=== PATIENT | male | born 1950 ===

== ENCOUNTER 2018-08-12 09:04 | Day surgery (SDC) | payer MEDICARE ==
[2017-05-10 14:00] VITALS: BMI 23.3
[2018-08-12 10:11] VITALS: O2SAT 100
[2018-08-12] MEDS ORDERED: Propofol 10 mg/ml Inj (20 ML) ONE ×2 (11:50→12:14)
[2018-08-12 13:01] VITALS: RESP 15; TEMP 97.7
[2018-08-12 13:03] VITALS: PULSE 70
[2018-08-12 15:00] VITALS: BP 112/53
== END 2018-08-12 14:10 | disposition home or self-care (01) ==
LOC: C.ENDO 09:04
PROVIDERS: ATTEND Internal Medicine Gastroenterology
DX: Z12.11 Encounter for screening for malignant neoplasm of colon (principal); Z86.010 Personal history of colon polyps; K64.1 Second degree hemorrhoids; E11.9 Type 2 diabetes mellitus without complications; I10 Essential (primary) hypertension; I25.10 Atherosclerotic heart disease of native coronary artery without angina pectoris; E78.5 Hyperlipidemia, unspecified; D12.2 Benign neoplasm of ascending colon; D12.5 Benign neoplasm of sigmoid colon
CPT/HCPCS: 45380; 45385; 82948; 88305; J2704; J7040